=== PATIENT | male | born 1995 | race Caucasian/White ===

== ENCOUNTER 2020-03-29 14:42 | Emergency (ER) | payer SELFPAY ==
[~2020-03-29] VITALS: Ht 167.6 cm; Wt 86.0 kg
[2020-03-29 15:10] VITALS: BP 158/93
[2020-03-29] MEDS ORDERED: BACI3.5O4 RIGHTEYE (15:25)
--- NOTE | 2020-03-29 15:25 | PHYS DOC ---
Past Medical History Past Medical History: No Pertinent History Past Surgical History History of skin grafts Smoking Status: Current Every Day Smoker Alcohol Use: Occasionally Drug Use: None General Adult EDM: Chief Complaint: EYE PROBLEMS HPI: HPI: 24-year-old male presents emergency department today with a bump on his right eye for about 5 days. He has been taking earc-oat-wfronfy medication with no relief. He denies any fevers or vomiting. He denies any chest pain or shortness of breath. Location right. Duration intermittent. He denies any redness of the white part of his eye. Review of systems is negative for chest pain shortness of breath vomiting fevers chills. All other review of systems negative ED course: 24-year-old male presenting with a right eye stye. We will give him topical erythromycin ointment and have him follow-up with an eye doctor in 1 to 2 days. He is to use warm compresses over the eye as well. Heart Score: Risk Factors: Risk Factors: DM, Current or recent (<one month) smoker, HTN, HLP, family h istory of CAD, obesity. Risk Scores: Score 0 - 3: 2.5% MACE over next 6 weeks - Discharge Home Score 4 - 6: 20.3% MACE over next 6 weeks - Admit for Clinical Observation Score 7 - 10: 72.7% MACE over next 6 weeks - Early Invasive Strategies Allergies: Allergies: Allergies Coded Allergies Type Severity Reaction Last Updated Verified No Known Drug Allergies 03/29/20 No Physical Exam: PE: Constitutional: Well developed, well nourished, no acute distress, non-toxic appearance. [] HENT: Normocephalic, atraumatic, bilateral external ears normal, oropharynx moist, no oral exudates, nose normal. [] Eyes: PERRLA, EOMI, conjunctiva normal, no discharge. The patient's right eye has redness with a some swelling just over the right eyelid. Conjunctiva is within normal limits. Normal extraocular movements. Otherwise unremarkable exa mination. Neck: Normal range of motion, no tenderness, supple, no stridor. [] Cardiovascular:Heart rate regular rhythm, no murmur [] Lungs & Thorax: Bilateral breath sounds clear to auscultation [] Abdomen: Bowel sounds normal, soft, no tenderness, no masses, no pulsatile masses. [] Skin: Warm, dry, no erythema, no rash. [] Back: No tenderness, no CVA tenderness. [] Extremities: No tenderness, no cyanosis, no clubbing, ROM intact, no edema. [] Neurologic: Alert and oriented X 3, normal motor function, normal sensory function, no focal deficits noted. [] Psychologic: Affect normal, judgement normal, mood normal. [] EKG: EKG: [] Radiology/Procedures: Radiology/Procedures: [] Course & Med Decision Making: Course & Med Decision Making Pertinent Labs and Imaging studies reviewed. (See chart for details) [] Dragon Disclaimer: Dragon Disclaimer: This electronic medical record was generated, in whole or in part, using a voice recognition dictation system. Departure Departure Impression: Primary Impression: Hordeolum externum (stye) Disposition: HOME, SELF-CARE Condition: STABLE Referrals: NO PCP (PCP) Patient Instructions: Sty Additional Instructions: Follow-up with your eye doctor in 1 to 2 days. Return to the emergency department if you have any new or concerning findings. Scripts Bacitracin/Polymyxin B Sulfate (BACITRACIN-POLYMYXIN EYE OINT) 3.5 Gm Oint...g. 1 LALO RIGHTEYE BID for 5 Days, #3 GM 0 Refills Prov: PETE LOPEZ MD 03/29/20 Justicifation of Admission Dx: Justifications for Admission: Justification of Admission Dx: Yes PETE LOPEZ MD Mar 29, 2020 15:25
== END 2020-03-29 16:00 | disposition home or self-care (01) ==
LOC: EDSEX 14:42 → ER 14:42
DX: H00.013 Hordeolum externum right eye, unspecified eyelid (principal); F17.200 Nicotine dependence, unspecified, uncomplicated
CPT/HCPCS: 99283